=== PATIENT | male | born 1995 | race Caucasian/White ===

== ENCOUNTER 2023-10-23 20:00 | Emergency (ER) | payer MEDICAID ==
[2023-10-23] MEDS: LORazepam 2 MG/ML SDV IVPUSH ONE (20:24)
[2023-10-23] MEDS: Sodium Chloride 0.9% 1,000 ML IV ONE (20:25)
[2023-10-23] MEDS: Sodium Chloride 0.9% 2.5 ML Syringe FLUSH PRN (20:25)
[2023-10-23] MEDS: fentaNYL 50 MCG/ML SDV IV ONE (20:25)
[2023-10-23] MEDS: Sodium Chloride 0.9% 10 ML Syringe FLUSH PRN (20:25)
[2023-10-23 20:57] LABS: BASOPHILS ABSOLUTE AUTO 0.04 K/uL (0.00-0.20); BASOPHILS PERCENT AUTO 0.5 % (0.0-1.0); EOSINOPHILS ABSOLUTE AUTO 0.02 K/uL (0.00-0.45); EOSINOPHILS PERCENT AUTO 0.2 % (0.0-6.0); HEMOGLOBIN 14.1 g/dL (14.0-18.0); IMMATURE GRAN PERCENT AUTO 2.4 % (0.0-0.4); LYMPHOCYTES ABSOLUTE AUTO 2.52 K/uL (1.00-4.80); LYMPHOCYTES PERCENT AUTO 30.2 % (24.0-44.0); MEAN CORPUSCULAR HEMOGLOBIN 33.2 pg (28.0-32.0); MEAN CORPUSCULAR HGB CONC 34.4 g/dL (32.0-36.0); MEAN CORPUSCULAR VOLUME 96.5 fL (83.0-99.0); MEAN PLATELET VOLUME 10.8 fL (9.4-12.4); MONOCYTES ABSOLUTE AUTO 0.54 K/uL (0.00-0.80); MONOCYTES PERCENT AUTO 6.5 % (0.0-8.0); NEUTROPHILS ABSOLUTE AUTO 5.03 K/uL (1.80-7.70); NEUTROPHILS PERCENT AUTO 60.2 % (41.0-71.0); PLATELET COUNT,PLT 272 K/uL (150-400); RED BLOOD CELL COUNT 4.25 M/uL (4.52-5.90); WHITE BLOOD CELL COUNT,WBC 8.35 K/uL (3.9-11.3)
[2023-10-23 21:26] LABS: A/G RATIO 0.9 (0.9-1.6); ALBUMIN 4.1 g/dL (3.4-5.0); BILIRUBIN TOTAL 0.4 mg/dL (0.2-1.0); CALCIUM 9.4 mg/dL (8.5-10.1); CARBON DIOXIDE,CO2 24.9 mmol/L (21.0-32.0); CREATININE 0.9 mg/dL (0.8-1.3); EST CRCL DRUG DOSING (CG) 121.11 mL/min; POTASSIUM,K 4.2 mmol/L (3.5-5.1); PROTEIN TOTAL,TP 8.5 g/dL (6.4-8.2)
== END 2023-10-23 22:05 | disposition home or self-care (01) ==
LOC: MW.ED 20:00
DX: G40.909 Epilepsy, unspecified, not intractable, without status epilepticus (principal); S39.012A Strain of muscle, fascia and tendon of lower back, initial encounter; Z79.899 Other long term (current) drug therapy; Z88.5 Allergy status to narcotic agent; Z88.6 Allergy status to analgesic agent; W19.XXXA Unspecified fall, initial encounter
CPT/HCPCS: 36415; 70450; 72125; 72128; 72131; 80053; 80164; 85025; 96361; 96374; 96375; 99284; J2060; J3010; J3490; J7030

== ENCOUNTER 2023-12-13 18:36 | Emergency (ER) | payer OTHER, MEDICAID ==
[2023-12-13] MEDS ORDERED: oxyCODONE 5 MG/5 ML Cup PO ONE (19:26)
[2023-12-13] MEDS: Ketorolac 30 MG/ML SDV IM ONE (19:45)
[2023-12-13] MEDS: oxyCODONE 5 MG Tab PO ONE (19:45)
[2023-12-13] MEDS: Acetaminophen 500 MG Tab PO ONE (19:46)
[2023-12-13 20:29] LABS: APPEARANCE,URINE CLEAR; BILIRUBIN,URINE NEGATIVE (NEGATIVE); COLOR,URINE YELLOW; GLUCOSE,URINE NEGATIVE (NEGATIVE); KETONES,URINE NEGATIVE (NEGATIVE); LEUKOCYTE ESTERASE,URINE NEGATIVE (NEGATIVE); NITRITE,URINE NEGATIVE (NEGATIVE); OCCULT BLOOD,URINE NEGATIVE (NEGATIVE); PROTEIN,URINE NEGATIVE (NEGATIVE); UROBILINOGEN,URINE 0.2 EU/dL (<2.0)
[2023-12-13 20:39] LABS: BACTERIA,URINE RARE (NEGATIVE); RBC,URINE 0-1 (0-2/HPF); WBC,URINE 0-1 (0-5/HPF)
[2023-12-13 20:40] LABS: EPITHELIAL CELLS,URINE NOT SEEN (NONE-FEW)
== END 2023-12-13 21:12 | disposition home or self-care (01) ==
LOC: MW.ED 18:36
DX: S32.019A Unspecified fracture of first lumbar vertebra, initial encounter for closed fracture (principal); Z79.899 Other long term (current) drug therapy; Z88.5 Allergy status to narcotic agent; Z88.8 Allergy status to other drugs, medicaments and biological substances; X58.XXXA Exposure to other specified factors, initial encounter
CPT/HCPCS: 72131; 81001; 96372; 99284; A9270; J1885; 99283

== ENCOUNTER 2023-12-18 15:50 | Emergency (ER) | payer OTHER, MEDICAID ==
[2023-12-18] MEDS: Acetaminophen/oxyCODONE 325-10 MG Tab PO ONE (16:35)
[2023-12-18] MEDS: Ketorolac 30 MG/ML SDV IM STA (16:36)
== END 2023-12-18 17:58 | disposition home or self-care (01) ==
LOC: MW.ED 15:50
DX: M54.50 Low back pain, unspecified (principal); Z79.899 Other long term (current) drug therapy; Z88.8 Allergy status to other drugs, medicaments and biological substances; Z88.5 Allergy status to narcotic agent; Z76.0 Encounter for issue of repeat prescription; Z88.1 Allergy status to other antibiotic agents
CPT/HCPCS: 96372; 99283; A9270; J1885

== ENCOUNTER 2024-01-10 10:20 | Emergency (ER) | payer MEDICAID ==
[2024-01-10] MEDS ORDERED: Sodium Chloride 0.9% 2.5 ML Syringe FLUSH PRN (10:37)
[2024-01-10] MEDS ORDERED: Sodium Chloride 0.9% 10 ML Syringe FLUSH PRN (10:37)
[2024-01-10 10:47] LABS: HEMATOCRIT 48.1 % (42.0-52.0); HEMOGLOBIN 16.4 g/dL (14.0-18.0); MEAN CORPUSCULAR HEMOGLOBIN 33.1 pg (28.0-32.0); MEAN CORPUSCULAR HGB CONC 34.1 g/dL (32.0-36.0); MEAN CORPUSCULAR VOLUME 97.2 fL (83.0-99.0); MEAN PLATELET VOLUME 10.8 fL (9.4-12.4); PLATELET COUNT,PLT 410 K/uL (150-400); RED BLOOD CELL COUNT 4.95 M/uL (4.52-5.90); WHITE BLOOD CELL COUNT,WBC 29.06 K/uL (3.9-11.3)
[2024-01-10] MEDS: Pantoprazole 40 MG in Sodium Chloride 0.9% 10 ML IVPUSH STA (10:59)
[2024-01-10] MEDS: Ondansetron 4 MG/2 ML SDV IVPUSH STA (10:59)
[2024-01-10] MEDS: Sodium Chloride 0.9% 1,000 ML IV STA ×2 (11:00→11:48)
[2024-01-10 11:12] LABS: A/G RATIO 1.1 (0.9-1.6); BILIRUBIN TOTAL 0.5 mg/dL (0.2-1.0); CALCIUM 9.8 mg/dL (8.5-10.1); CARBON DIOXIDE,CO2 18.2 mmol/L (21.0-32.0); CREATININE 1.4 mg/dL (0.8-1.3); EST CRCL DRUG DOSING (CG) 77.85 mL/min; MAGNESIUM 1.7 mg/dL (1.8-2.4); POTASSIUM,K 4.5 mmol/L (3.5-5.1); PROTEIN TOTAL,TP 9.4 g/dL (6.4-8.2)
[2024-01-10 11:31] LABS: BAND ABSOLUTE MAN 1.16; BAND PERCENT MAN 4 %; LYMPHOCYTES ABSOLUTE MAN 2.91 K/uL (1.00-4.80); LYMPHOCYTES PERCENT MAN 10 % (24-44); MONOCYTES ABSOLUTE MAN 2.32 K/uL (0.00-0.80); MONOCYTES PERCENT MAN 8 % (0-8); MYELOCYTE ABSOLUTE MAN 0.58; MYELOCYTE PERCENT MAN 2 %; SEG NEUTROPHILS ABSOLUTE MAN 22.09 K/uL (1.80-7.70); SEG NEUTROPHILS PERCENT MAN 76 % (41-71)
[2024-01-10] MEDS: Magnesium Sulfate/Water Premix 2 GM in Premix Bag 1 BAG IV STA (11:48)
[2024-01-10] MEDS: Ketorolac 30 MG/ML SDV IVPUSH STA (11:48)
[2024-01-10] MEDS: Iopamidol 755 MG/ML 500 ML Multipack Bottle IVPUSH STA (13:00)
[2024-01-10] MEDS: Alum Hydrox/Mag Hydrox/Simeth 15 ML, Lidocaine 2% 5 ML PO ONE (13:40)
== END 2024-01-10 14:13 | disposition home or self-care (01) ==
LOC: MW.ED 10:20
DX: K29.00 Acute gastritis without bleeding (principal); N17.9 Acute kidney failure, unspecified; E83.42 Hypomagnesemia; Z87.891 Personal history of nicotine dependence; Z88.5 Allergy status to narcotic agent; Z88.8 Allergy status to other drugs, medicaments and biological substances; Z75.8 Other problems related to medical facilities and other health care
CPT/HCPCS: 36415; 71045; 74177; 80053; 83690; 83735; 84484; 85025; 93005; 96361; 96365; 96375; 99284; A9270; J1885; J2405; J2470; J3475; J3490; J7030; Q9967

== ENCOUNTER 2024-03-15 12:53 | Emergency (ER) | payer MEDICAID, OTHER ==
[2024-03-15] MEDS: methylPREDNISolone Sodium Succinate 40 MG/1 ML SDV IM STA (14:41)
[2024-03-15] MEDS: traMADol 50 MG Tab PO STA (14:41)
[2024-03-15] MEDS: Ondansetron 4 MG Tab.DIS PO STA (15:28)
== END 2024-03-15 15:44 | disposition home or self-care (01) ==
LOC: MW.ED 12:53
DX: M54.41 Lumbago with sciatica, right side (principal); M54.42 Lumbago with sciatica, left side; G89.29 Other chronic pain; Z90.89 Acquired absence of other organs; Z88.5 Allergy status to narcotic agent; Z88.8 Allergy status to other drugs, medicaments and biological substances; Z79.52 Long term (current) use of systemic steroids; Z79.899 Other long term (current) drug therapy; Z75.8 Other problems related to medical facilities and other health care
CPT/HCPCS: 96372; 99283; A9270; J2919; J3360

== ENCOUNTER 2024-04-02 10:34 | Emergency (ER) | payer MEDICAID, OTHER | END 2024-04-02 10:52 | disposition left against medical advice (07) | LOC: MW.ED 10:34 | DX: Z53.21 Procedure and treatment not carried out due to patient leaving prior to being seen by health care provider (principal) ==

== ENCOUNTER 2025-01-11 14:50 | Emergency (ER) | payer MEDICAID ==
[2025-01-11] MEDS ORDERED: Sodium Chloride 0.9% 2.5 ML Syringe FLUSH PRN ×2 (14:52→15:33)
[2025-01-11] MEDS ORDERED: Sodium Chloride 0.9% 10 ML Syringe FLUSH PRN ×2 (14:52→15:33)
[2025-01-11 15:43] LABS: APPEARANCE,URINE CLEAR; GLUCOSE,URINE NEGATIVE (NEGATIVE); OCCULT BLOOD,URINE NEGATIVE (NEGATIVE)
[2025-01-11 15:52] LABS: AMPHETAMINES SCREEN, URINE NEGATIVE (CUTOFF=500); BUPRENORPHINE SCREEN,URINE NEGATIVE (CUTOFF=10); METHADONE SCREEN, URINE NEGATIVE (CUTOFF=200); METHAMPHETAMINES SCREEN, URINE NEGATIVE (CUTOFF=500); OXYCODONE SCREEN,URINE NEGATIVE (CUT0FF=100); PCP SCREEN,URINE NEGATIVE (CUTOFF=25); THC SCREEN,URINE 20 NG/ML PRESUMPTIVE POSITIVE (CUTOFF=50)
[2025-01-11 16:13] LABS: BASOPHILS ABSOLUTE AUTO 0.02 K/uL (0.00-0.20); BASOPHILS PERCENT AUTO 0.3 % (0.0-1.0); EOSINOPHILS ABSOLUTE AUTO 0.03 K/uL (0.00-0.45); EOSINOPHILS PERCENT AUTO 0.4 % (0.0-6.0); IMMATURE GRAN ABSOLUTE AUTO 0.02 K/uL (0.00-0.05); IMMATURE GRAN PERCENT AUTO 0.3 % (0.0-0.4); LYMPHOCYTES ABSOLUTE AUTO 3.28 K/uL (1.00-4.80); LYMPHOCYTES PERCENT AUTO 47.5 % (24.0-44.0); MEAN PLATELET VOLUME 10.1 fL (9.4-12.4); MONOCYTES ABSOLUTE AUTO 0.51 K/uL (0.00-0.80); MONOCYTES PERCENT AUTO 7.4 % (0.0-8.0); NEUTROPHILS ABSOLUTE AUTO 3.04 K/uL (1.80-7.70); NEUTROPHILS PERCENT AUTO 44.1 % (41.0-71.0); NRBC ABSOLUTE 0.00 K/uL (0.00-0.02); NRBC PERCENT 0.0 /100WBC (0.0-0.2); PLATELET COUNT,PLT 255 K/uL (150-400); RED BLOOD CELL COUNT 4.04 M/uL (4.52-5.90); WHITE BLOOD CELL COUNT,WBC 6.90 K/uL (3.9-11.3)
[2025-01-11] MEDS: Ondansetron 4 MG/2 ML SDV IVPUSH ONE (16:34)
[2025-01-11] MEDS: Ketorolac 30 MG/ML SDV IVPUSH ONE (16:34)
[2025-01-11] MEDS: droPERidol 2.5 MG/ML SDV IVPUSH ONE (16:34)
[2025-01-11 16:37] LABS: A/G RATIO 1.5 (0.9-1.6); ALANINE AMINOTRANSFERASE,ALT 19.0 IU/L (14-63); ASPARTATE AMNIOTRANSFERASE,AST 14.0 IU/L (15-37); BILIRUBIN TOTAL 0.3 mg/dL (0.2-1.0); BLOOD UREA NITROGEN,BUN 11.0 mg/dL (7.0-18.0); CARBON DIOXIDE,CO2 23.9 mmol/L (21.0-32.0); CHLORIDE,CL 107.0 mmol/L (98-107); CREATININE 0.7 mg/dL (0.8-1.3); EST CRCL DRUG DOSING (CG) 154.31 mL/min; ETHANOL BLOOD MEDICAL 124.0 mg/dL; GLUCOSE RANDOM 78.0 mg/dL (74-106); POTASSIUM,K 3.9 mmol/L (3.5-5.1); PROTEIN TOTAL,TP 7.6 g/dL (6.4-8.2); SODIUM,NA 143.0 mmol/L (136-148)
[2025-01-11 16:42] LABS: ESTIMATED GFR 127.0 mL/min (>60)
[2025-01-11 18:26] LABS: C. TRACHOMATIS BY PCR NOT DETECTED; N. GONORRHOEAE BY PCR NOT DETECTED
== END 2025-01-11 16:52 | disposition left against medical advice (07) ==
LOC: MW.ED 14:50
DX: R30.0 Dysuria (principal); R31.0 Gross hematuria; G89.29 Other chronic pain; R10.A3 Flank pain, bilateral; F12.90 Cannabis use, unspecified, uncomplicated; Z88.5 Allergy status to narcotic agent; Z87.891 Personal history of nicotine dependence; Z88.8 Allergy status to other drugs, medicaments and biological substances; Z79.890 Hormone replacement therapy; Z79.899 Other long term (current) drug therapy
CPT/HCPCS: 36415; 80053; 80305; 80307; 81003; 82550; 83690; 83735; 85025; 87491; 87591; 96374; 96375; 99284; J1790; J1885; J2405; J7030; 99283

== ENCOUNTER 2025-01-25 07:55 | Day surgery (SDC) | payer MEDICAID ==
[2025-01-25] MEDS: Lactated Ringers 1,000 ML IV SCH (08:25)
[2025-01-25] MEDS ORDERED: Midazolam 1 MG/ML 2 ML SDV ONE (08:26)
[2025-01-25] MEDS ORDERED: Ondansetron 4 MG/2 ML SDV ONE (08:31)
[2025-01-25] MEDS ORDERED: fentaNYL 100 MCG/2 ML SDV ONE (08:31)
[2025-01-25] MEDS ORDERED: propofoL 500 MG/50 ML 50 ML ONE (09:03)
[2025-01-25] MEDS ORDERED: Ketorolac 30 MG/ML SDV ONE (09:09)
== END 2025-01-25 10:35 | disposition home or self-care (01) ==
LOC: MW.SDS 07:55
PROVIDERS: ATTEND Surgery
DX: K57.30 Diverticulosis of large intestine without perforation or abscess without bleeding (principal); K29.50 Unspecified chronic gastritis without bleeding; K21.9 Gastro-esophageal reflux disease without esophagitis; E78.5 Hyperlipidemia, unspecified; E03.9 Hypothyroidism, unspecified; I10 Essential (primary) hypertension; Z88.8 Allergy status to other drugs, medicaments and biological substances; Z87.891 Personal history of nicotine dependence; Z79.899 Other long term (current) drug therapy
CPT/HCPCS: 43239; 45380; J1171; J1596; J1885; J2250; J2405; J2704; J3010; J7120; 00813

== ENCOUNTER 2025-02-05 12:37 | Emergency (ER) | payer MEDICAID ==
[2025-02-05] MEDS: Dexamethasone Sod Phos Preservative Free 10 MG/ML Vial IM ONE (13:24)
== END 2025-02-05 13:54 | disposition home or self-care (01) ==
LOC: MW.ED 12:37
DX: M54.9 Dorsalgia, unspecified (principal); I10 Essential (primary) hypertension; E03.9 Hypothyroidism, unspecified; K21.9 Gastro-esophageal reflux disease without esophagitis; Z75.3 Unavailability and inaccessibility of health-care facilities; Z79.899 Other long term (current) drug therapy; Z88.5 Allergy status to narcotic agent; Z88.8 Allergy status to other drugs, medicaments and biological substances; Z79.890 Hormone replacement therapy
CPT/HCPCS: 96372; 99283; A9270; J1100